=== PATIENT | female | born 1955 | race Caucasian/White ===

== ENCOUNTER 2024-02-12 13:20 | Outpatient (CLI) | payer BC, SELFPAY ==
--- NOTE | ~2024-02-12 | CT_ITS ---
Non-contrast CT scan of the Abdomen and Pelvis Clinical indication: Right flank pain Technique: 2.5 mm axial scans were obtained through the abdomen and pelvis without intravenous or or al contrast. Dose reduction technique was used on this scan by utilizing automated exposure control a nd iterative reconstruction technique. The dose-length product (DLP) was 914.26 mGy-cm. Findings: Images through the lung bases reveal no abnormalities. Bilateral nonobstructing renal stones are present. Left kidney relatively atrophic. No ureteral stone or hydronephrosis on either side. The liver, spleen, pancreas, gallbladder, and adrenals appear normal. 1.4 cm densely calcified spleni c artery aneurysm present. There are atherosclerotic calcifications of the aorta. There is no evidence of bowel obstruction. Images through the pelvis were performed. There is no evidence of ascites or lymphadenopathy. Urinary bladder unremarkable. No pelvic mass evident. Impression: Bilateral nonobstructing renal stones. No ureteral stone or hydronephrosis. Left kidney relatively at rophic. 1.4 cm splenic artery aneurysm, densely calcified. Reviewed, dictated and finalized at location . Impression: Bilateral nonobstructing renal stones. No ureteral stone or hydronephrosis. Lef t kidney relatively atrophic. 1.4 cm splenic artery aneurysm, densely calcified.
== END 2024-02-12 13:21 ==
LOC: MICIMG 13:21
PROVIDERS: PCP Family Medicine; Visit Provider Physician Assistant
DX: R10.9 Unspecified abdominal pain (principal); N20.0 Calculus of kidney
CPT/HCPCS: 74176

== ENCOUNTER 2024-10-11 02:22 | Day surgery (SDC) | payer BC, SELFPAY ==
[2024-09-29 16:07] VITALS: BMI 28.2
[2024-10-11 08:34] VITALS: BP 159/104; PULSE 79; RESP 18; TEMP 36.2; O2SAT 99
[2024-10-11] MEDS: LACTATED RINGERS 1,000 ML 150 ML IV CONT (08:47)
--- NOTE | 2024-10-11 09:11 | PM.HPGS ---
History of Present Illness History of Present Illness Consent: Risks, benefits, and alternatives have been discussed and questions answered. Patient agrees to proceed with procedure. Chief complaint: Pers. hx. colon polyps Narrative: Peggy Cormier is a 68 year old female with colon polyps in 2019 Review of Systems Review of Systems: All systems reviewed & are unremarkable except as noted in HPI and below PMFSH Past Medical History Medical History (Updated 10/11/24 @ 09:11 by Salo Renner MD) Colon polyp Dyslipidemia Essential (primary) hypertension History of kidney stones Insomnia Vitamin D deficiency Surgical History Surgical History H/O section (~1979) 1979 & 1983 H/O lithotripsy (~2016) Family History Family History Other Hypertension Social History Social History Smoking status: Former smoker Tobacco type: cigarettes Smoking end date: 12/13/15 Alcohol intake: current Drinks per week: 1 Alcohol use details: socially Substance use: never Substance use type: does not use Lack of Transportation: No Lack of Food: Never True Current Housing: I Have Housing Concerned About Future Housing: No Difficulty Paying Gas/Electric Bills: No Difficulty Paying for Meds: No Currently Unemployed: No Education: High School Diploma/GED Difficulty w/ Childcare or Family Care: No Living arrangements: alone Additional living arrangements comments: Occupation/Education: occupation Gender identity (if verbalized by the patient): Female Sexual Orientation (if Verbalized by the Patient): Straight or Heterosexual Spiritual care concerns: No Agree to blood products: Yes Meds Home Medications and Allergies Home Medications Medication Instructions Recorded Confirmed Type cholecalciferol (vitamin D3) 50 50 mcg PO DAILY 10/03/22 10/11/24 History mcg (2,000 unit) tablet lisinopril 20 mg tablet 20 mg PO DAILY #90 tabs 05/05/24 10/11/24 Rx mv-min-iron 4.5 mg-folic ac 120 1 tablet PO DAILY 09/29/24 10/11/24 History mcg-vit K1 60 mcg-herbal no.352 tablet (Alive Women's Multivitamin) vitamin A-vitamin C-vit E-min 2 tablet PO DAILY 09/29/24 10/11/24 History tablet Allergies Allergy/AdvReac Type Severity Reaction Status Date / Time No Known Allergies Allergy Verified 10/11/24 08:33 Vital Signs Vital Signs - 24 hr 10/11/24 08:34 Temperature 97.2 F L Pulse Rate 79 Respiratory Rate 18 Blood Pressure 159/104 H Pulse Oximetry 99 Oxygen Delivery Room Air Exam Const: General: comfortable and no acute distress HENMT: Face/Nose/Sinus: Normal nares present Eyes: General: appearance normal, both eyes and all related structures Neck: Neck: no JVD Resp: Auscultation: clear to auscultation bilaterally Cardio: Rate: regular rate Rhythm: regular rhythm GI: Inspection: non-distended GI Palp: Yes Soft to palpation Skin: General skin exam: normal color Neuro: General: gait normal Speech: normal speech Extrem: General: normal to inspection Psych: Mental Status: mental status grossly normal Assessment and Plan Assessment and plan (1) Colon polyp: Code(s): K63.5 - Polyp of colon Status: Acute Assessment and Plan: colonoscopy
--- NOTE | 2024-10-11 09:12 | WPDANESEPPF ---
Anes - Initial Pre Proc Eval Procedure: Operation Date: 10/11/24 10:00 Proposed Procedures p Colonoscopy - Salo Renner MD Date/Time: 10/11/24 09:12 Surgeon: Salo Renner MD Pre Op Diagnosis: Pers. hx. colon polyps Patient Data Age: 68 Gender: F Height: 1.7 m Weight: 83 kg Last Vital Signs Temp 36.2 C L 10/11/24 08:34 Pulse 79 10/11/24 08:34 Resp 18 10/11/24 08:34 BP 159/104 H 10/11/24 08:34 Pulse Ox 99 10/11/24 08:34 O2 Del Method Room Air 10/11/24 08:34 Allergies Allergy/AdvReac Type Severity Reaction Status Date / Time No Known Allergies Allergy Verified 10/11/24 08:33 Home Medications Medication Instructions Recorded Confirmed Type cholecalciferol (vitamin D3) 50 50 mcg PO DAILY 10/03/22 10/11/24 History mcg (2,000 unit) tablet lisinopril 20 mg tablet 20 mg PO DAILY #90 tabs 05/05/24 10/11/24 Rx mv-min-iron 4.5 mg-folic ac 120 1 tablet PO DAILY 09/29/24 10/11/24 History mcg-vit K1 60 mcg-herbal no.352 tablet (Alive Women's Multivitamin) vitamin A-vitamin C-vit E-min 2 tablet PO DAILY 09/29/24 10/11/24 History tablet Patient hx anesthesia problems: none Family hx anesthesia problems: none Results Review: All pre-operative results and documents have been reviewed as part of the pre-operative evaluation. [facility] Past Medical History Medical History Dyslipidemia Essential (primary) hypertension History of kidney stones Insomnia Vitamin D deficiency Surgical History Surgical History H/O section (~1979) 1979 & 1983 H/O lithotripsy (~2016) Family History Family History Other Hypertension Social History Social History Smoking status: Former smoker Tobacco type: cigarettes Smoking end date: 12/13/15 Alcohol intake: current Drinks per week: 1 Alcohol use details: socially Substance use: never Substance use type: does not use Lack of Transportation: No Lack of Food: Never True Current Housing: I Have Housing Concerned About Future Housing: No Difficulty Paying Gas/Electric Bills: No Difficulty Paying for Meds: No Currently Unemployed: No Education: High School Diploma/GED Difficulty w/ Childcare or Family Care: No Living arrangements: alone Additional living arrangements comments: Occupation/Education: occupation Gender identity (if verbalized by the patient): Female Sexual Orientation (if Verbalized by the Patient): Straight or Heterosexual Spiritual care concerns: No Agree to blood products: Yes Anes - Eval Final PreProcedure Day of Procedure 10/11/24 09:12 Patient weight: overweight Heart: regular rate and rhythm Lungs: clear to auscultation Airway: Mallampati scale class II Neurological: alert and oriented Last oral intake: >/= 8 hours ASA classification: II Emergent: no Anesthetic plan: proceed Anesthesia type and monitoring: general GIVS Results Review: All pre-operative results and documents have been reviewed as part of the pre-operative evaluation. Informed Consent: The patient's anesthetic plan and its attendant risks and benefits were discussed with the patient/family/POA. Questions were solicited and answers provided to the satisfaction of the patient/family/POA.
[2024-10-11 09:33] VITALS: BP 121/74; PULSE 72; RESP 18; O2SAT 97
[2024-10-11 09:43] VITALS: BP 139/70; PULSE 71; RESP 18; O2SAT 92
[2024-10-11 09:53] VITALS: BP 147/82; PULSE 73; RESP 18; O2SAT 100
== END 2024-10-11 10:05 | disposition home or self-care (01) ==
PROVIDERS: PCP Family Medicine; Referring Provider Nurse Practitioner; Visit Provider Internal Medicine Gastroenterology
PROC: 0DJD8ZZ Inspection of Lower Intestinal Tract, Via Natural or Artificial Opening Endoscopic (ICD-10-PCS; CPT 45378; principal; 2024-10-11 10:00)
DX: Z12.11 Encounter for screening for malignant neoplasm of colon (principal); K63.5 Polyp of colon; K57.30 Diverticulosis of large intestine without perforation or abscess without bleeding; K64.8 Other hemorrhoids; I10 Essential (primary) hypertension; E78.5 Hyperlipidemia, unspecified; E55.9 Vitamin D deficiency, unspecified; Z87.891 Personal history of nicotine dependence
CPT/HCPCS: 45385; 88305; J2704; J7120

== ENCOUNTER → 2025-06-27 15:17 | Outpatient (REF) | payer BC, SELFPAY ==
--- NOTE | 2025-06-27 15:17 | S_PTH ---
PATIENT: Peggy Cormier LOC: [facility] U#:[id number] AGE/SX: 69/F ROOM: RE06/27/[address]: Molly Jackson MD : 1955 BED: DIS: SPEC #: [id number] RECD: 06/28/25 07:17 STATUS: HONEY REVale #: [id number] JOSEPH: 06/27/25 15:[address]: Molly Jackson DEPT: [facility] Surgical RECD BY: Miracle Franklin ENTERED: 06/28/25 07:17 SP TYPE: Surgical OTHR DR: Delisa Bee MD Tissues: A - Cyst Procedures: Hematoxylin and Eosin Stain Gross and Microscopic Level 4
== END ==
LOC: ANHLAB 15:17
PROVIDERS: PCP Family Medicine; Visit Provider Plastic Surgery
DX: R22.32 Localized swelling, mass and lump, left upper limb (principal)
CPT/HCPCS: 88305

== ENCOUNTER 2025-10-04 08:17 | Outpatient (CLI) | payer BC, SELFPAY ==
--- NOTE | ~2025-10-04 | MR_ITS ---
EXAMINATION: MR brain/brain stem wo con DATE: 10/04/2025 09:23 INDICATION: Tremor, unspecified. TECHNIQUE: Magnetic resonance imaging (MRI) of the brain and brainstem was performed without intravenous contrast. COMPARISON: None. FINDINGS: There are scattered areas of nonspecific increased T2-weighted signal intensity in the cerebral white matter. There is no intracranial hemorrhage, acute infarction, or abnormal intracranial mass lesion. The ventricles are normal in size. There are likely changes of ocular lens replacement surgeries. The paranasal sinuses are clear. The mastoid air cells are normal. IMPRESSION: 1. Mild nonspecific cerebral white matter disease, which likely represents chronic small vessel ischemic disease. Reviewed, dictated and finalized at location E. WRAPPER IMPRESSION: 1. 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
== END 2025-10-04 08:18 | disposition home or self-care (01) ==
LOC: GOSHIMG 08:17
PROVIDERS: PCP Family Medicine; Visit Provider Family Medicine
DX: R25.1 Tremor, unspecified (principal); R90.82 White matter disease, unspecified
CPT/HCPCS: 70551